=== PATIENT | male | born 1980 | race African-American/Black ===

== ENCOUNTER 2017-05-12 05:43 | Emergency (ER) | payer BC ==
[~2017-05-12] VITALS: Ht 185.4 cm; Wt 149.8 kg
[2017-05-12 06:07] LABS: HEMATOCRIT 46.5 % (38.0-50.0); MCH 28.2 PG (29.0-34.0); MCHC 32.5 G/DL (30.0-36.0); MCV 86.9 FL (86-99); MEAN PLAT.VOLUME 11.3 uM^3 (9.0-12.4); PLATELET COUNT 193 K/uL (156-360); RBC DIS.WIDTH-CV 13.3 % (11.8-14.6); RBC DIS.WIDTH-SD 41.9 % (39-53); RED BLOOD COUNT 5.35 M/uL (4.00-5.50); WHITE BLOOD COUNT 10.6 K/uL (4.1-10.2)
[2017-05-12 06:18] LABS: CHLORIDE 104 mEq/L (99-109); SODIUM 142 mEq/L (136-147)
[2017-05-12 06:20] LABS: GLUCOSE 251 mg/dL (70-99)
[2017-05-12 06:21] LABS: ANION GAP 16 MEQ/L (2-14)
[2017-05-12 06:25] LABS: GFR ESTIMATE (CALCULATED) > 59 mL/min/; UREA NITROGEN (BUN) 12 mg/dL (9-23)
[2017-05-12 06:30] LABS: TROP-I INTERPRETATION NEGATIVE; TROPONIN-I 0.01 ng/mL (0.0-0.30)
[2017-05-12] MEDS ORDERED: PREDNISONE50 MG PO (09:31)
[2017-05-12 09:40] VITALS: BP 130/83
== END 2017-05-12 09:41 | disposition home or self-care (01) ==
LOC: EME 05:43
PROVIDERS: Emergency Medicine
DX: J45.901 Unspecified asthma with (acute) exacerbation (principal); J02.9 Acute pharyngitis, unspecified
CPT/HCPCS: 71020; 80048; 84484; 85027; 85379; 93005; 94640; 94640 76; 99281; 99283; J7512

== ENCOUNTER 2018-02-25 05:40 | Day surgery (SDC) | payer BC ==
[~2018-02-25] VITALS: Ht 185.4 cm; Wt 149.9 kg
[~2018-02-25 05:40] MED LIST: DIABETA5 MG PO; GLUCOPHAGE850 MG PO; HYDROCHLOROTHIA25 MG PO; NEXIUM40 MG PO; PREDNISONE50 MG PO; SYMBICORT60 INHALAT IH; TOPROL XL25 MG PO; WELLBUTRIN SR150 MG PO
[2018-02-25 06:45] VITALS: BP 133/87
[2018-02-25] MEDS ORDERED: NORCO 5/3251 TABLET PO (08:33)
[2018-02-25 10:27] VITALS: BP 126/72
[2018-02-25 11:25] VITALS: BP 113/66
== END 2018-02-25 11:55 | disposition home or self-care (01) ==
LOC: SDC 05:40
PROVIDERS: Surgery
PROC: 0FT44ZZ Resection of Gallbladder, Percutaneous Endoscopic Approach (ICD-10-PCS; principal; 2018-02-25)
DX: K80.10 Calculus of gallbladder with chronic cholecystitis without obstruction (principal); E66.01 Morbid (severe) obesity due to excess calories; Z68.42 Body mass index [BMI] 45.0-49.9, adult; E11.9 Type 2 diabetes mellitus without complications; I10 Essential (primary) hypertension; Z79.84 Long term (current) use of oral hypoglycemic drugs; Z88.0 Allergy status to penicillin; J30.9 Allergic rhinitis, unspecified; Z83.3 Family history of diabetes mellitus
CPT/HCPCS: 82948; 88304; J0131; J0330; J1100; J1170; J1580; J1885; J2250; J2405; J2710; J3010; J7050; J7643; S0020; S0030